=== PATIENT | male | born 1975 | race Caucasian/White ===

== ENCOUNTER 2019-09-18 05:34 | Emergency (ER) | payer OTHER, SELFPAY ==
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
[2019-09-18 05:43] VITALS: BP 129/92; PULSE 81; RESP 18; TEMP 36.6; O2SAT 98
[2019-09-18 06:25] VITALS: BP 121/83; PULSE 78; RESP 18; O2SAT 100
[2019-09-18] MEDS: MORPHINE SULFATE 4 MG/ML INJ IV PUSH ×2 (06:39→08:10)
[2019-09-18] MEDS: ONDANSETRON INJ 4 MG/2 ML VIAL IV PUSH (06:39)
[2019-09-18] MEDS: SODIUM CHLORIDE 0.9% IV 1,000 ML 150 ML IV CONT (06:39)
[2019-09-18 06:45] LABS: Basophils Percent Auto 0.5 % (0.2-1.2); Eosinophils Percent Auto 0.4 % (0-4.4); Hematocrit 45.4 % (42.0-52.0); Hemoglobin 15.7 g/dL (14.0-18.0); Immature Granulocyte Absolute 0.05 K/mm3 (0.00-0.031); Immature Granulocyte Percent A 0.6 % (0-0.5); Lymphocytes Absolute Auto 1.61 K/mm3 (0.9-3.2); Lymphocytes Percent Auto 20.8 % (18.3-44.2); Mean Corpuscular HGB Conc 34.6 g/dl (32-36); Mean Corpuscular Hemoglobin 31.1 pg (26-34); Mean Corpuscular Volume 89.9 fl (80-100); Mean Platelet Volume 9.8 fl (7.4-10.4); Monocytes Absolute Auto 0.6 K/mm3 (0.1-0.6); Monocytes Percent Auto 8.3 % (2.6-8.5); Neutrophils Absolute Auto 5.4 K/mm3 (1.3-6.7); Neutrophils Percent Auto 69.4 % (45.5-73.1); Platelet Count Result 238 k/mm3 (150-375); Red Blood Count 5.05 M/mm3 (4.6-6.20); Red Cell Distribution Width 12.1 % (11.5-14.5); White Blood Count 7.7 K/mm3 (4.5-10.0)
[2019-09-18 06:57] LABS: Alanine Aminotransferase 40 U/L (4-50); Alkaline Phosphatase 72 U/L (38-126); Aspartate Amino Transferase 29 U/L (17-59); Bilirubin,Total 0.5 mg/dL (0.2-1.3); Blood Urea Nitrogen 19 mg/dL (9-20); Carbon Dioxide 23 mmol/L (22-30); Chloride 101 mmol/L (98-107); Estimated Glomerular Filt Rate > 60; Glucose 182 mg/dL (75-110); Lipase 160 U/L (23-300); Potassium 4.9 mmol/L (3.4-5.0); Sodium 136 mmol/L (137-145)
--- NOTE | 2019-09-18 07:05 | ECG_ITS ---
Measurements Intervals [place] Rate: 76 P: 33 IN: 140 QRS: 2 QRSD: 110 T: 15 QT: 359 QTc: 406 Interpretive Statements SINUS RHYTHM INCOMPLETE RIGHT BUNDLE BRANCH BLOCK VOLTAGE CRITERIA FOR LVH BORDERLINE T WAVE ABNORMALITY- INFERIOR LEADS BORDERLINE ECG Electronically Signed On 09-18-2019 10:51:27 METAL WASHING MACHINE OPERATOR by Melo Pryor D.O.
[2019-09-18 08:00] VITALS: BP 124/94; PULSE 78; RESP 15; O2SAT 100
[2019-09-18 08:27] LABS: Add Urine Microscopic? YES; Appearance Urine Clear (Clear); Bilirubin Urine Negative (Negative); Blood Urine Negative (Negative); Color Urine Colorless (Yellow); Glucose Urine UA 1+ mg/dL (Negative); Ketones Urine Negative (Negative); Leukocyte Esterase Ur Negative LEU/UL (Negative); Nitrate Urine Negative (Negative); Protein Urine Negative (Negative); Specific Grav Ur 1.023 (1.001-1.035); Urobilinogen Urine Negative mg/dL (<2.0)
--- NOTE | 2019-09-18 08:59 | PC.NURSE ---
Pt has voided 100-200 mL x 2 since being here but states that he is not emptying his bladder. Bladder scan revealed > [address] Wadsworth notified, who then saw the pt. Dr. Wadsworth said to NOT put in a Segura catheter or do any other intervention for urinary retention at this time. Pt states that he does not feel lower abdominal pain or pressure nor does he constantly feel an overwhelming need to void. Pt does ask to stand to void but it was explained to him and (at the bedside) that he cannot stand right now.
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
[2019-09-18 09:14] VITALS: BP 122/91; PULSE 84; RESP 14; O2SAT 97
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
--- NOTE | 2019-09-18 09:22 | PC.NURSE ---
Called [facility] to transfer pt to a higher level of care. They are NUA
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
== END 2019-09-18 10:00 | disposition short-term general hospital (02) ==
PROVIDERS: Emergency Provider Family Medicine; PCP Internal Medicine
DX: S22.22XA Fracture of body of sternum, initial encounter for closed fracture (principal); M47.812 Spondylosis without myelopathy or radiculopathy, cervical region; R91.8 Other nonspecific abnormal finding of lung field; I45.10 Unspecified right bundle-branch block; R94.31 Abnormal electrocardiogram [ECG] [EKG]; V43.52XA Car driver injured in collision with other type car in traffic accident, initial encounter
CPT/HCPCS: 36415; 71046; 71260; 72125; 80053; 81001; 83690; 85025; 93005; 96361; 96374; 96375; 96376; 99285; J2270; J2405; J7030; Q9967